=== PATIENT | female | born 1990 | race Caucasian/White ===

== ENCOUNTER 2016-08-25 15:20 | Emergency (ER) ==
[2016-08-25 15:29] VITALS: BP 116/67
--- NOTE | 2016-08-25 15:48 | PROVIDER DOCUMENTATION ---
[facility] General <Meggan AguilarKaren - Last Filed: 08/25/16 15:46> - General Source: patient - [facility] reports: [facility] (R) Quality of Pain: reports: burning Severity: reports: mild Onset/Duration: reports: abrupt, this morning Timing: reports: still present, constant Prearrival Treatment: Initiated no prearrival treatment Associated Symptoms: denies: cough, ear drainage, facial pain/swelling, fever, nasal congestion/drainage, sore throat Locality of Occurance: Home Similar Symptoms Previously?: No Recently seen or treated by another doctor?: No - Eyes Eye Problem Symptoms: reports: eye pain, foreign body sensation. denies: itching, sensitivity to light, matting, orbital swelling, eyelid swelling Apparent Injury?: No Eye Problem Context: reports: none <Leonard Montoya - Last Filed: 08/25/16 16:02> - General Chief Complaint: Eye Complaint Stated Complaint: EYE COMPLAINT Time Seen by Provider: 08/25/16 15:43 Allergies/Adverse Reactions: Patient Allergies Allergy/AdvReac Type Severity Reaction Status Date / Time ceftizoxime AdvReac VOMITING Verified 06/30/16 16:14 - History of Present Illness-[facility] General Nature of Presenting Problem: pt is a 26 y/o F that presents with right eye pain that began this am when patient awoke from sleep. Denies injury,denies matting to eye. She has had sinus drainage, cough, or nasal congestion. No fever/chills no visual loss. ( Leonard Montoya) Review of Systems - Adult - REVIEW OF SYSTEMS - ADULT Constitutional: denies: chills, fever Eyes: reports: eye pain. denies: discharge, decreased vision, blurred vision, double vision Ears, Nose, Mouth & Throat: denies: ear pain, sinus problem, mouth/dental pain, mouth swelling, throat pain, throat swelling Cardiovascular: reports: no symptoms reported Respiratory: denies: cough, shortness of breath, wheezing Gastrointestinal: denies: diarrhea, nausea, vomiting Genitourinary: reports: no symptoms reported Musculoskeletal: reports: no symptoms reported Integumentary: reports: no symptoms reported Neurological: reports: no symptoms reported Psychiatric: reports: no symptoms reported Endocrine: reports: no symptoms reported Hematologic/Lymphatic: reports: no symptoms reported Allergic/Immunologic: reports: no symptoms reported All Other Systems: Reviewed and Negative <Leonard Montoya - Last Filed: 08/25/16 16:02> Past History - Adult - PAST MEDICAL HISTORY-ADULT Major Childhood Illnesses: reports: denies history Cardiovascular: reports: denies history Respiratory: reports: asthma Obstetrical/Gynecological: reports: endometriosis, ovarian cysts Neurological: reports: headaches/migraines Psychiatric: reports: depression, other (ADHD) - PRIOR SURGERIES/PROCEDURES Surgical/Procedure History: reports: other (tubes in ears as a child) - PRIOR HOSPITALIZATIONS Prior Hospitalizations: reports: for other non-related - IMMUNIZATION STATUS Childhood Immunizations: See Nurse Assessment Flu Vaccine: See Nurse Assessment - FAMILY HISTORY Family History: reviewed, not pertinent <Meggan Aguilar - Last Filed: 08/25/16 15:46> - PAST MEDICAL HISTORY-ADULT Review of Records: reports: Old Records Reviewed, Nursing Assessment Review, Medications Reviewed Respiratory: reports: asthma Obstetrical/Gynecological: reports: endometriosis Neurological: reports: headaches/migraines Psychiatric: reports: depression, other (adhd) - PRIOR SURGERIES/PROCEDURES Surgical/Procedure History: reports: other (tubes in ears) - IMMUNIZATION STATUS Childhood Immunizations: See Nurse Assessment Flu Vaccine: See Nurse Assessment - FAMILY HISTORY Family History: reviewed, not pertinent - SOCIAL HISTORY Smoking: quit greater than 1 year, cigarettes Living Situation: family <Leonard Montoya - Last Filed: 08/25/16 16:02> Physical Exam- EENT - Physical Exam EENT Initial Vital Signs Reviewed: Yes General Appearance: alert, no apparent distress Eye Exam: bilateral eye: normal inspection, PERRL Ear Exam: bilateral ear: other (scarring noted, bilateral retraction) Nasal Exam: normal inspection. negative: sinus tenderness Throat Exam: normal mouth inspection, pharynx normal Neck: full range of motion, normal inspection. negative: lymphadenopathy Respiratory: lungs clear, normal breath sounds, no respiratory distress, no accessory muscle use Cardiovascular: regular rate, rhythm, no edema, no murmur Abdominal Exam: normal bowel sounds, non tender, soft, no organomegaly, no pulsatile mass Extremity: normal range of motion, non-tender, normal inspection, no pedal edema Integumentary: normal color, warm/dry Neurologic: grossly normal, no motor/sensory deficits Psych/Mental Status: normal mood/affect, normal thought content, normal thought process, oriented x 3 <Leonard Montoya - Last Filed: 08/25/16 16:02> Progress <Meggan Aguilar - Last Filed: 08/25/16 15:46> <Leonard Montoya - Last Filed: 08/25/16 16:02> - PLAN OF CARE/RESULTS Progress/Plan/Lab Results: Vital Signs Temp Pulse Resp BP Pulse Ox 08/25/16 15:27 97 F L 70 18 116/67 100 ceftizoxime Adverse Reaction (Verified 06/30/16 16:14) VOMITING Nitrofurantoin [place]/Macrocryst [Macrobid] 100 mg PO BID #14 capsule 06/30/16 Phenazopyridine HCl [Pyridium] 200 mg PO TID PRN PRN #9 tablet 06/30/16 Fluticasone 50 Mcg Nasal [place] [Flonase] 1 spray SANDEE DAILY #1 bottle 08/25/16 Ketorolac 0.5% Ophth Soln [Acular 0.5% Ophth Soln] 1 drop RIGHT EYE 4XDAY PRN PRN #1 bottle 08/25/16 Mark/Polymyx B Sulf/Dexameth [Aeqyec-Dylsy-Vijdiawr Eye Drop] 5 ml OP BID #1 drops.susp 08/25/16 (Leonard Montoya) Departure - Departure Time of Disposition Order: 15:46 Certified Medical Emergency: Emergent <Meggan Aguilar - Last Filed: 08/25/16 15:46> <Leonard Montoya - Last Filed: 08/25/16 16:02> - Departure DIAGNOSIS: Retraction of tympanic membrane Qualifiers: Laterality: left Qualified Code(s): H73.892 - Other specified disorders of tympanic membrane, left ear Conjunctivitis Qualifiers: Conjunctivitis type: acute Acute conjunctivitis type: viral Laterality: right Qualified Code(s): B30.9 - Viral conjunctivitis, unspecified Disposition: HOME 01 Condition: Stable Additional Instructions: ED Follow Up Instructions: You have been treated by a care provider in the Emergency Department. These instructions are being provided to you so you can have an understanding of how to care for yourself upon discharge. Upon discharge from the Emergency Department, you are responsible for making arrangements for follow-up care by a physician of your choice. Take all prescribed medications as directed. Return to the Emergency Department immediately for any new or worsening symptoms. You may call the Physician Referral phone number at [phone] to obtain a list of Physicians who are taking new patients. Prescriptions: Ketorolac 0.5% Ophth Soln [Acular 0.5% Ophth Soln] 1 drop RIGHT EYE 4XDAY PRN PRN #1 bottle PRN Reason: Pain Fluticasone 50 Mcg Nasal [place] [Flonase] 1 spray SANDEE DAILY #1 bottle Mark/Polymyx B Sulf/Dexameth [Dtwjvt-Qrvyx-Kegpuyct Eye Drop] 5 ml OP BID #1 drops.susp Referrals: None,PCP [Primary Care Provider] - Nida Watson MD [STAFF PHYSICIAN] - Forms: Return to School/Parent Work Instructions: Bacterial Conjunctivitis, Fluticasone cream or ointment, Ketorolac tablets Attestation - Scribe Verification/Attestation Scribe:: Leonard Montoya Acting as Scribe for:: Meggan Aguilar Scribe documention review:: This chart was documented by a scribe and accurately reflects the service the provider performed and the decisions made by the provider. - Physician/ Mid-level Attestation Patient care was provided by Mid-level provider (MANAGER LONG TERM CARE/PA):: Yes Mid-level provider:: Meggan Aguilar Mid-level documentation review:: The Mid-level provider documentation, treatment plan and medical decision making was reviewed by the physician who agrees with all treatment and medical decision making by the MLP. <Leonard Montoya - Last Filed: 08/25/16 16:02> Physician Attestation
== END 2016-08-25 16:09 | disposition home or self-care (01) ==
LOC: P.ED 15:20
DX: B30.9 Viral conjunctivitis, unspecified (principal); H73.892 Other specified disorders of tympanic membrane, left ear; H57.11 Ocular pain, right eye; R51 Headache; Z87.42 Personal history of other diseases of the female genital tract; Z87.891 Personal history of nicotine dependence
CPT/HCPCS: 99281

== ENCOUNTER 2016-10-31 19:52 | Emergency (ER) ==
--- NOTE | 2016-10-31 21:04 | PROVIDER DOCUMENTATION ---
HPI-Musculoskeletal Pain/Inj - GENERAL Source: patient - HX OF PRESENT ILLNESS-MUSKULOSKELTAL Quality of Pain: reports: aching, throbbing Severity in ED: moderate Onset/Duration: 1 week ago Timing: still present Modifying Factors: improves with: nothing Any recent injury?: Yes Locality of Occurance: Home Similar Symptoms Previously?: No Recently seen or treated by another doctor?: No - LOWER EXTREMITY PAIN/INJURY Lower Extremities Pain: ankle: right Context / Method of Injury: reports: twisted Associated Symptoms: reports: denies symptoms <Lin Falcon - Last Filed: 10/31/16 20:59> <Prosper Ruiz - Last Filed: 10/31/16 23:05> - GENERAL Chief Complaint: Extremity Injury Stated Complaint: FOOT INJURY Time Seen by Provider: 10/31/16 20:28 - HX OF PRESENT ILLNESS-MUSKULOSKELTAL Nature of Presenting Problem: PT IS A 26YOF PRESENTING TO THE ED C/O RIGHT ANKLE PAIN. PT STATES SHE TWISTED HER RIGHT ANKLE A WEEKS AGO ON ONE OF HER DAUGHTERS SHOES AND THE PAIN ISNT GETTING BETTER. SHE STATES SHE CANT BEAR WEIGHT ON THAT FOOT AND HER ANKLE IS STAYING SWOLLEN, NO DEFORMITY OR OBVIOUS INJURY NOTED AT THIS TIME (Lin Falcon) Review of Systems - Adult - REVIEW OF SYSTEMS - ADULT Constitutional: reports: no symptoms reported Eyes: reports: no symptoms reported Ears, Nose, Mouth & Throat: reports: no symptoms reported Cardiovascular: reports: no symptoms reported Respiratory: reports: no symptoms reported Gastrointestinal: reports: no symptoms reported Genitourinary: reports: no symptoms reported Musculoskeletal: reports: see HPI, joint pain, muscle aches. denies: muscle weakness, neck pain Integumentary: reports: no symptoms reported Neurological: reports: no symptoms reported Psychiatric: reports: no symptoms reported Endocrine: reports: no symptoms reported Hematologic/Lymphatic: reports: no symptoms reported Allergic/Immunologic: reports: no symptoms reported All Other Systems: Reviewed and Negative <Lin Falcon - Last Filed: 10/31/16 20:59> Past History - Adult - PAST MEDICAL HISTORY-ADULT Review of Records: reports: Old Records Reviewed, Nursing Assessment Review, Medications Reviewed, Social history reviewed & non-contributory. Major Childhood Illnesses: reports: denies history Cardiovascular: reports: denies history Respiratory: reports: asthma Gastrointestinal: reports: denies history Obstetrical/Gynecological: reports: endometriosis Genitourinary: reports: denies history Musculoskeletal: reports: denies history Neurological: reports: headaches/migraines Psychiatric: reports: depression Endocrine/Immune: reports: denies history Other Conditions: reports: denies history - PRIOR SURGERIES/PROCEDURES Surgical/Procedure History: reports: other (tubes in ears) - PRIOR HOSPITALIZATIONS Prior Hospitalizations: reports: for other non-related - IMMUNIZATION STATUS Childhood Immunizations: See Nurse Assessment Flu Vaccine: See Nurse Assessment - FAMILY HISTORY Family History: reviewed, not pertinent - SOCIAL HISTORY Smoking: denies, quit greater than 1 year Substance Use: none/never, denies Alcohol Use Frequency: never Living Situation: family <Lin Falcon - Last Filed: 10/31/16 20:59> Physical Exam-Injury Related - Physical Exam-Injury Related Initial Vital Signs Reviewed: Yes General Appearance: appears well, alert, mild distress, anxious. negative: no apparent distress Eyes: PERRL/EOMI, pink conjunctivae, fundi clear, no AV nicking Head, Ears, Nose, Mouth & Throat: normocephalic/atraumatic, moist mucous membranes, normal ENT inspection, TMs normal, pharynx normal Neck: non-tender, full range of motion, supple, normal inspection Respiratory: chest non-tender, lungs clear, normal breath sounds, no pleuratic chest pain, no respiratory distress, no accessory muscle use Cardiovascular: normal peripheral pulses, regular rate, rhythm, no edema, no gallop, no JVD, no murmur Abdominal Exam: normal bowel sounds, non tender, soft, no organomegaly, no pulsatile mass Lymphatic: no adenopathy Back Exam: normal inspection, no CVA tenderness, no vertebral tenderness Extremity: no pedal edema, no calf tenderness, normal capillary refill, tenderness (RT ANKLE). negative: normal range of motion, non-tender, normal gait, normal inspection Integumentary: normal color, warm/dry Neurologic: welder/installer II-XII nml as tested, grossly normal, no motor/sensory deficits Psych/Mental Status: normal mood/affect, normal thought content, normal thought process, oriented x 3 - Glascow Coma Score Best Eye Response ([place]): (4) open spontaneously Best Verbal Response ([place]): (5) oriented Best Motor Response ([place]): (6) obeys commands <Lin Falcon - Last Filed: 10/31/16 20:59> Progress <Lin Falcon - Last Filed: 10/31/16 20:59> - XRAY 1 XRAY: Right XRAY Study: Ankle Impression: Normal (Per radiologist) <Prosper Ruiz - Last Filed: 10/31/16 23:05> - PLAN OF CARE/RESULTS Progress/Plan/Lab Results: Orders Category Date Time Status ANKLE COMPLETE RIGHT [RAD] Stat Exams 10/31/16 20:50 Taken TEST-URINE [PREG] Stat Lab 10/31/16 20:00 Completed Vital Signs Temp Pulse Resp BP Pulse Ox 10/31/16 20:03 97.3 F L 81 18 132/72 100 ceftizoxime Adverse Reaction (Verified 08/30/16 00:32) VOMITING No Home Medications 08/30/16 Laboratory 10/31/16 20:00 Urine Test NEGATIVE (Prosper Ruiz) Departure <Lin Falcon - Last Filed: 10/31/16 20:59> - Departure Time of Disposition Order: 22:15 Certified Medical Emergency: Emergent <Prosper Ruiz - Last Filed: 10/31/16 23:05> - Departure DIAGNOSIS: Ankle sprain Qualifiers: Encounter type: initial encounter Involved ligament of ankle: unspecified ligament Laterality: right Qualified Code(s): S93.401A - Sprain of unspecified ligament of right ankle, initial encounter Disposition: HOME 01 Condition: Stable Additional Instructions: ED Follow Up Instructions: You have been treated by a care provider in the Emergency Department. These instructions are being provided to you so you can have an understanding of how to care for yourself upon discharge. Upon discharge from the Emergency Department, you are responsible for making arrangements for follow-up care by a physician of your choice. Take all prescribed medications as directed. Return to the Emergency Department immediately for any new or worsening symptoms. You may call the Physician Referral phone number at [phone] to obtain a list of Physicians who are taking new patients. Prescriptions: Ketorolac [Toradol] 10 mg PO Q6H PRN PRN #6 tablet PRN Reason: Pain Referrals: None,PCP [Primary Care Provider] - Jihan Aquino MD [STAFF PHYSICIAN] - Forms: Return to School/Parent Work Instructions: Ankle Sprain, Ketorolac tablets Attestation - Scribe Verification/Attestation Scribe:: Lin Falcon Acting as Scribe for:: Prosper Ruiz Scribe documention review:: This chart was documented by a scribe and accurately reflects the service the provider performed and the decisions made by the provider. <Lin Falcon - Last Filed: 10/31/16 20:59> - Physician/ DEAN Attestation Patient care was provided by Advanced Practice Provider:: Yes Advanced Practice Provider:: Prosper Ruiz Advanced Practice Provider documentation review:: The Mid-level provider documentation, treatment plan and medical decision making was reviewed by the physician who agrees with all treatment and medical decision making by the P. <Prosper Ruiz - Last Filed: 10/31/16 23:05> Physician Attestation - Physician Attestation I, the provider, attest to the following statement:: Dewey Borwn Physician documentation Attestation:: This documentation recorded by the scribe accurately reflects the service I personally performed and the decisions made by me. <Lin Falcon - Last Filed: 10/31/16 20:59>
[2016-10-31] MEDS ORDERED: TORADOL PO ONE (22:16)
[2016-10-31 22:36] VITALS: BP 126/84
--- NOTE | 2016-11-01 09:11 | Diag Imaging Result Document ---
PROCEDURE NAME: ANKLE COMPLETE RIGHT - 10/31/2016 RIGHT ANKLE, 3 VIEWS: COMPARISON: 02/03/2015. FINDINGS: There are small degenerative heel spurs. No fracture or subluxation. The ankle joint spaces are clear. IMPRESSION: No acute disease.
== END 2016-10-31 22:35 | disposition home or self-care (01) ==
LOC: P.ED 19:52
DX: S93.401A Sprain of unspecified ligament of right ankle, initial encounter (principal); M25.571 Pain in right ankle and joints of right foot; M79.1 Myalgia; R51 Headache; Z87.891 Personal history of nicotine dependence; X58.XXXA Exposure to other specified factors, initial encounter
CPT/HCPCS: 81025; 99283